=== PATIENT | male | born 1985 | race Caucasian/White ===

== ENCOUNTER 2020-06-28 14:29 | Outpatient (REF) | payer BC, SELFPAY | END 2020-06-28 14:30 | disposition home or self-care (01) | LOC: HO.LAB 14:29 | PROVIDERS: Visit Provider Hospitalist | DX: Z20.822 Contact with and (suspected) exposure to COVID-19 (principal) | CPT/HCPCS: 36415; U0003 ==

== ENCOUNTER 2024-03-08 15:47 | Outpatient (AMB) | payer BC, SELFPAY ==
[2024-03-08 15:52] VITALS: BP 138/86; PULSE 108; O2SAT 98; BMI 22.9
--- NOTE | 2024-03-08 15:52 | A.OFFPC_ITS ---
Vital Signs 03/08/24 15:52 Height 5 ft 8 in Weight 150 lb 6 oz BMI 22.9 BP 138/86 Blood Pressure Location Lt brachial Position Sitting Pulse 108 H Pulse Source Pulse Oximeter Pulse Oximetry (%) 98 Oxygen Delivery Method Room Air Intake Visit Reasons: NPV needs PE for insurance Allergies No Known Allergies Allergy (Verified 03/08/24 16:01) Medication List - Last Reconciled 03/08/24 by Rosa Golden MD No Known Home Meds Tobacco use date assessed: 03/08/24 Dental Screening Dental Screen Date: 03/08/24 Did you have a dental visit in the last 12 months?: No Did you have a dental problem in the last 6 months where you did not have access to dental care?: No Was dental information given to patient?: Patient has dentist HPI HPI Comments History of Present Illness Details 38 year old male with no significant pas t medical history presenting to [facility] and for physical exam No concerns today. Says [facility]. Due for labs ROS CONSTITUTIONAL: Denies weight loss, fever and chills. HEENT: Denies changes in vision and hearing. RESPIRATORY: Denies SOB and cough. CV: Denies palpitations and CP GI: Denies abdominal pain, nausea, vomiting and diarrhea. : Denies dysuria and urinary frequency. MSK: Denies new myalgia and joint pain. SKIN: Denies rash and pruritus. NEUROLOGICAL: Denies headache PSYCHIATRIC: Denies recent changes in mood. PHYSICAL EXAM: GENERAL: Alert and oriented x 3. NAD EYES: EOMI. Anicteric. HENT: Moist mucous membranes. No scleral icterus. No cervical lymphadenopathy. LUNGS: Clear to auscultation bilaterally. CARDIOVASCULAR: Regular rate and rhythm. No murmur. No JVD. ABDOMEN: Soft, non-tender +bs EXTREMITIES: No edema. Non-tender. SKIN: No rashes or lesions. Warm. NEUROLOGIC: No focal neurological deficits. CN II-XII grossly intact PSYCHIATRIC: Cooperative. Appropriate mood and affect [facility] Surgical History (Updated 03/08/24 @ 16:04 by Faina Zamorano CMA) History of appendectomy Family History (Updated 03/08/24 @ 16:05 by Faina Zamorano CMA) Father Substance abuse Social History (Updated 03/08/24 @ 16:10 by Faina Zamorano CMA) Household Members: None Housing: Apartment Alcohol intake: current Alcohol intake frequency: 3 or more drinks per day Alcohol type: beer and hard liquor Patient Tobacco Use Status: Current everyday Tobacco user Cigarettes Per Day: 10 e-Cigarette/Vaping Use: Never Used service: No Current occupational status: employed ([employer]) Current occupation: [employer] Cognitive needs: No Hearing needs: No Vision needs: No Questionnaire PHQ-9 Over the last 2 weeks, how often have you been bothered by any of the following problems? 1. Little interest or pleasure in doing things: not at all 2. Feeling down, depressed, or hopeless: not at all 3. Trouble falling or staying asleep, or sleeping too much: nearly every day 4. Feeling tired or having little energy: more than half the days 5. Poor appetite or overeating: not at all 6. Feeling bad about yourself - or that you are a failure or have let yourself or your family down: not at all 7. Trouble concentrating on things, such as reading the newspaper or watching television: not at all 8. Moving or speaking so slowly that other people could have noticed. Or the opposite - being so fidgety or restless that you have been moving around a lot more than usual: not at all 9. Thoughts that you would be better off or of hurting yourself in some way: not at all Total score: 5 Depression Screening Interpretation: Positive Depression Screening Follow-up: Declines treatment Depression Screening Done: Yes 64980 - PHQ-9 Billing: Yes Source: Developed by Drs. Mehdi Fernández, Heather Joel, Sixto Bourgeois and colleagues, with an educational michel from [email or web address]. Thrive Questionnaire Date Thrive assessed: 03/08/24 I am a: Patient What is your living situation today?: I have a steady place to live Within the past 12 months, did the food you bought not last and you didn't have the money to get more?: Never true Within the past 12 months, did you worry whether your food would run out before you got money to buy more?: Never true Do you have trouble paying for medicines?: No Do you have trouble getting transportation to medical appointments?: No Do you have trouble paying your heating and electricity bill?: No Do you have trouble taking care of your child, family member or friend?: No Do you have trouble with day-to-day activities such as bathing, preparing meals, shopping, managing finances, etc.?: No Are you currently unemployed and looking for a job?: No Are you interested in more education?: No Please select the resources that you would like help with: None Currently or been in a relationship where the following occur: No concerns reported THRIVE Score: 0 AUDIT C Alcohol Use Questionnaire (AUDIT-C) 1. How often do you have a drink containing alcohol?: 4 or more times a week 2. How many drinks containing alcohol do you have on a typical day when you are drinking?: 3 or 4 3. How often do you have six or more drinks on one occasion?: Daily or almost daily Total Score: 9 FRANDY-7 AMB Questionnaire FRANDY-7 Date FRANDY - 7 assessed: 03/08/24 Feeling nervous, anxious, or on edge: 0 = Not at all Not being able to stop or control worryin = Not at all Worrying too much about different things: 1 = Several days Trouble relaxin = Not at all Being so restless that it is hard to sit still: 1 = Several days Becoming easily annoyed or irritable: 0 = Not at all Feeling afraid as if something awful might happen: 0 = Not at all Total FRANDY-7 score (0-4 normal; 5-9 mild; 10-14 moderate; 15-21 severe): 2 Source: Developed by Drs. Mehdi Fernández, Heather Joel, Sixto Bourgeois and colleagues, with an educational michel from [email or web address]. FRANDY-7 Assessment Billing FRANDY-7 Assessment Tool: FRANDY-7 Assessment 88139 Physical exam (Primary Care) Vital Signs: Last Vital Signs Pulse 108 H 03/08/24 15:52 BP 138/86 03/08/24 15:52 Pulse Ox 98 03/08/24 15:52 Oxygen Delivery Method Room Air 03/08/24 15:52 BMI result Body Mass Index 22.9 Tobacco/Smoking Status: Tobacco use Status Tobacco use date assessed 03/08/24 03/08/24 16:06 Patient Tobacco Use Status Current everyday Tobacco 03/08/24 16:10 e-Cigarette/Vaping Use Never Used 03/08/24 16:10 PHQ-9: PHQ-9 Score PHQ-9: Total score 5 03/21/24 13:55 Depression Screening Interpretation: Positive Depression Screening Follow-up: Declines treatment Thrive Assessment: Date of Thrive Assessment Date Thrive assessed 03/08/24 03/08/24 16:06 Currently or been in a relationship where the following occur: No concerns reported Coding Level of Care Code Est Pt Prev Care 40-64y(26881) Diagnoses Physical exam Z00.00 Additional Codes FRANDY-7 Assessment Billing - FRANDY-7 Assessment Tool: FRANDY-7 Assessment [id number] ([id number])
== END 2024-03-08 16:19 | disposition home or self-care (01) ==
PROVIDERS: Visit Provider Internal Medicine
DX: Z00.00 Encounter for general adult medical examination without abnormal findings (principal)

== ENCOUNTER → 2024-03-08 15:47 | Outpatient (BNVA) | payer OTHER, SELFPAY | PROVIDERS: Visit Provider Internal Medicine | DX: Z00.00 Encounter for general adult medical examination without abnormal findings (principal) | CPT/HCPCS: 96127 ==

== ENCOUNTER 2024-03-26 15:13 | Outpatient (REF) | payer BC, SELFPAY ==
[2024-03-26 17:23] LABS: MANUAL DIFF FLAG NO
[2024-03-26 17:30] LABS: Basophils Absolute Auto 0.1 X10*3/uL (0.0-0.2); Basophils Percent Auto 0.6 % (0-2); Eosinophils Absolute Auto 0.1 X10*3/uL (0.0-0.4); Eosinophils Percent Auto 0.7 % (0-4); Hemoglobin 14.8 g/dl (14.0-18.0); Imm Gran Abs Auto 0.03 X10*3/uL (0.00-0.03); Imm Gran Pct Auto 0.3 % (0.0-0.4); Lymphocytes Absolute Auto 1.4 X10*3/uL (1.2-4.9); Lymphocytes Percent Auto 14.3 % (20-40); Mean Corpuscular HGB Conc 33.6 g/dl (31.0-36.0); Mean Corpuscular Hemoglobin 32.4 pg (27.0-33.0); Mean Corpuscular Volume 96.3 fL (80.0-98.0); Mean Platelet Volume 10.1 fL (9.4-12.4); Monocytes Absolute Auto 0.8 X10*3/uL (0.1-1.2); Monocytes Percent Auto 8.6 % (2-11); Neutrophils Absolute Auto 7.1 x10*3/uL (2.0-8.3); Neutrophils Percent Auto 75.5 % (45-73); Platelet Count 208 X10*3/uL (160-400); Red Blood Count 4.57 X10*6/uL (4.60-5.80); Red Cell Distribution Width 12.7 % (11.0-16.0); White Blood Count 9.4 X10*3/uL (4.8-10.8)
[2024-03-26 17:42] LABS: Estimated Average Glucose 94 mg/dL; Hemoglobin A1C 113.4407 umol/L; Hemoglobin A1c % 4.9 % (<6.0); Total Hemoglobin (HGBA1C) 3742.5149 umol/L
[2024-03-26 17:43] LABS: Alanine Aminotransferase 31 U/L (0-40); Albumin Level 4.5 g/dL (3.5-5.0); Alkaline Phosphatase 62 U/L (39-117); Anion Gap 15 (12-20); Aspartate Amino Transferase 31 U/L (5-37); Bilirubin Total 0.8 mg/dL (0.0-1.0); Blood Urea Nitrogen 11 mg/dL (9-16); Calcium 9.6 mg/dL (8.4-10.2); Carbon Dioxide 29 mmol/L (22-29); Chloride 101 mmol/L (96-108); Cholesterol 278 mg/dL (<200); Estimated Glomerular Filt Rate > 60; Glucose Random 99 mg/dL (60-115); HDL Cholesterol > 180 mg/dL (>40); LDL Cholesterol Calculated 81 mg/dL (<100); Potassium 4.2 mmol/L (3.3-5.1); Sodium 141 mmol/L (135-145); Total Protein 7.3 g/dL (6.5-8.0); Triglycerides 87 mg/dL (<150)
== END 2024-03-26 15:14 | disposition home or self-care (01) ==
LOC: HO.WFDLDS 15:13
PROVIDERS: Visit Provider Internal Medicine
DX: Z13.0 Encounter for screening for diseases of the blood and blood-forming organs and certain disorders involving the immune mechanism (principal); Z13.228 Encounter for screening for other metabolic disorders; Z13.220 Encounter for screening for lipoid disorders; Z13.1 Encounter for screening for diabetes mellitus
CPT/HCPCS: 36415; 80053; 80061; 83036; 85025

== ENCOUNTER 2024-04-05 14:46 | Outpatient (AMB) | payer BC, SELFPAY ==
--- NOTE | 2024-04-05 14:56 | A.OFFPC_ITS ---
Vital Signs 04/05/24 14:58 04/05/24 15:12 Height 5 ft 8 in Weight 155 lb BMI 23.6 BP 142/100 H 138/86 Blood Pressure Location Lt brachial Lt brachial Position Sitting Sitting Pulse 119 H 114 H Pulse Source Pulse Oximeter Pulse Oximeter Temp 98.8 F Pulse Oximetry (%) 99 Oxygen Delivery Method Room Air Intake Visit Reasons: Dizzy since fall 2 months ago Intake Note: Dizziness, not sleeping during the night since a fall two months ago. 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 Lost consciousness. Seen in [facility]. Got 15 stitches. Still having dizziness, excessive fatigue. No concerns today. Says [facility]. Due for labs ROS see HPI PHYSICAL EXAM: GENERAL: Alert and oriented x 3. NAD EYES: EOMI. Anicteric. HENT: Moist mucous membranes. No scleral icterus. No cervical lymphadenopathy. LUNGS: Clear to auscultation bilaterally. CARDIOVASCULAR: Regular rate and rhythm. No murmur. No JVD. ABDOMEN: Soft, non-tender +bs EXTREMITIES: No edema. Non-tender. SKIN: No rashes or lesions. Warm. NEUROLOGIC: No focal neurological deficits. CN II-XII grossly intact PSYCHIATRIC: Cooperative. Appropriate mood and affect [facility] Surgical History (Updated 03/08/24 @ 16:04 by Faina Zamorano CMA) History of appendectomy Family History (Updated 03/08/24 @ 16:05 by Faina Zamorano CMA) Father Substance abuse Social History (Updated 03/08/24 @ 16:10 by Faina Zamorano CMA) Household Members: None Housing: Apartment Alcohol intake: current Alcohol intake frequency: 3 or more drinks per day Alcohol type: beer and hard liquor Patient Tobacco Use Status: Current everyday Tobacco user Cigarettes Per Day: 10 e-Cigarette/Vaping Use: Never Used service: No Current occupational status: employed ([employer]) Current occupation: [employer] Cognitive needs: No Hearing needs: No Vision needs: No Questionnaire Thrive Questionnaire Date Thrive assessed: 03/08/24 I am a: Patient What is your living situation today?: I have a steady place to live Within the past 12 months, did the food you bought not last and you didn't have the money to get more?: Never true Within the past 12 months, did you worry whether your food would run out before you got money to buy more?: Never true Do you have trouble paying for medicines?: No Do you have trouble getting transportation to medical appointments?: No Do you have trouble paying your heating and electricity bill?: No Do you have trouble taking care of your child, family member or friend?: No Do you have trouble with day-to-day activities such as bathing, preparing meals, shopping, managing finances, etc.?: No Are you currently unemployed and looking for a job?: No Are you interested in more education?: No Please select the resources that you would like help with: None Currently or been in a relationship where the following occur: No concerns reported THRIVE Score: 0 FRANDY-7 AMB Questionnaire FRANDY-7 Date FRANDY - 7 assessed: 03/08/24 Source: Developed by Drs. Mehdi Fernández, Heather Joel, Sixto Bourgeois and colleagues, with an educational michel from [employer]. Physical exam (Primary Care) Vital Signs: Last Vital Signs Temp 98.8 F 04/05/24 14:58 Pulse 114 H 04/05/24 15:12 BP 138/86 04/05/24 15:12 Pulse Ox 99 04/05/24 14:58 Oxygen Delivery Method Room Air 04/05/24 14:58 BMI result Body Mass Index 23.6 Tobacco/Smoking Status: Tobacco use Status Tobacco use date assessed 03/08/24 04/05/24 15:03 Patient Tobacco Use Status Current everyday Tobacco 04/05/24 15:03 e-Cigarette/Vaping Use Never Used 04/05/24 15:03 Thrive Assessment: Date of Thrive Assessment Date Thrive assessed 03/08/24 04/05/24 15:03 Currently or been in a relationship where the following occur: No concerns reported Coding Level of Care Code Est Pt Level 4 (81700) Diagnoses Traumatic injury of head, sequela S09.90XS Encounter type: sequela Other fatigue R53.83 Fatigue type: other Dizziness R42 Assessment & Plan Assessment & Plan (1) Head trauma: Code(s): S09.90XA - Unspecified injury of head, initial encounter Category: Medical Qualifiers: Encounter type: sequela Qualified Code(s): S09.90XS - Unspecified injury of head, sequela Plan: Symptoms concerning for subdural bleed versus ongoing post concussive symptoms. CT ordered. Improve sleeping pattern-trazodone sent (2) Fatigue: Code(s): R53.83 - Other fatigue Category: Medical Qualifiers: Fatigue type: other Qualified Code(s): R53.83 - Other fatigue Plan: see above (3) Dizziness: Code(s): R42 - Dizziness and giddiness Category: Medical Plan: see above Orders: Orders CT head/brain wo IV con 04/05/24 R42 - Dizziness and giddiness, R53.83 - Other fatigue, S09.90XA - Unspecified injury of head, initial encounter Medications: New trazodone 50 - 100 mg (1 - 2 x 50 mg) PO BEDTIME 180 tabs 0RF 90 days
[2024-04-05 14:58] VITALS: BP 142/100; PULSE 119; TEMP 37.1; O2SAT 99; BMI 23.6
[2024-04-05 15:12] VITALS: BP 138/86; PULSE 114
== END 2024-04-05 16:26 | disposition home or self-care (01) ==
LOC: HO.HMCFM 14:47
PROVIDERS: Visit Provider Internal Medicine
DX: S09.90XS Unspecified injury of head, sequela (principal); R53.83 Other fatigue; R42 Dizziness and giddiness

== ENCOUNTER → 2024-04-05 14:46 | Outpatient (BNVA) | payer OTHER, SELFPAY | PROVIDERS: Visit Provider Internal Medicine ==

== ENCOUNTER 2024-04-13 10:22 | Outpatient (AMB) | payer BC, SELFPAY ==
--- NOTE | 2024-04-13 10:41 | A.OFFPC_ITS ---
Vital Signs 04/13/24 10:56 Height 5 ft 8 in Weight 150 lb 2 oz BMI 22.8 BP 118/74 Blood Pressure Location Rt brachial Position Sitting Pulse 96 Pulse Source Pulse Oximeter Pulse Oximetry (%) 98 Oxygen Delivery Method Room Air Intake Visit Reasons: ERF Intake Note: Hospital follow up. Director Of Catering Required: No Allergies No Known Allergies Allergy (Verified 04/13/24 10:43) Tobacco use date assessed: 03/08/24 Dental Screening Dental Screen Date: 03/08/24 HPI HPI Comments History of Present Illness Details 38 year old male with a past medical his tory of etoh use, fall/concussion, abnormal brain CT presenting for ER follow up He recently presented to [facility] seeking treatment. He was sent to the ER due to excessive shakiness, tremulousness and worry about his recent fall and dizziness. He was evaluated at [facility] ED and repeat head CT was performed. This redemonstrated a 8mm thalamic hyperdensity and a non specific right cerebellar hyperdensity. Fell 2 months ago, tripped forward hitting right temporal area. Lost consciousness. Seen in [facility]. Got 15 stitches. Still having dizziness, excessive fatigue. He was discharged from the ER on naltrexone, b6, folic acid. continues trazodone. Has been having increased dizziness and vertigo No concerns today. Says [facility]. Due for labs ROS see HPI PHYSICAL EXAM: GENERAL: Alert and oriented x 3. NAD EYES: EOMI. Anicteric. HENT: Moist mucous membranes. No scleral icterus. No cervical lymphadenopathy. LUNGS: Clear to auscultation bilaterally. CARDIOVASCULAR: Regular rate and rhythm. No murmur. No JVD. ABDOMEN: Soft, non-tender +bs EXTREMITIES: No edema. Non-tender. SKIN: No rashes or lesions. Warm. NEUROLOGIC: No focal neurological deficits. CN II-XII grossly intact PSYCHIATRIC: Cooperative. Appropriate mood and affect [facility] Surgical History (Updated 03/08/24 @ 16:04 by Faina Zamorano CMA) History of appendectomy Family History (Updated 03/08/24 @ 16:05 by Faina Zamorano CMA) Father Substance abuse Social History (Updated 03/08/24 @ 16:10 by Faina Zamorano CMA) Household Members: None Housing: Apartment Alcohol intake: current Alcohol intake frequency: 3 or more drinks per day Alcohol type: beer and hard liquor Patient Tobacco Use Status: Current everyday Tobacco user Cigarettes Per Day: 10 e-Cigarette/Vaping Use: Currently Using service: No Current occupational status: employed ([employer]) Current occupation: [employer] Cognitive needs: No Hearing needs: No Vision needs: No Questionnaire Thrive Questionnaire Date Thrive assessed: 03/08/24 I am a: Patient What is your living situation today?: I have a steady place to live Within the past 12 months, did the food you bought not last and you didn't have the money to get more?: Never true Within the past 12 months, did you worry whether your food would run out before you got money to buy more?: Never true Do you have trouble paying for medicines?: No Do you have trouble getting transportation to medical appointments?: No Do you have trouble paying your heating and electricity bill?: No Do you have trouble taking care of your child, family member or friend?: No Do you have trouble with day-to-day activities such as bathing, preparing meals, shopping, managing finances, etc.?: No Are you currently unemployed and looking for a job?: No Are you interested in more education?: No Please select the resources that you would like help with: None Currently or been in a relationship where the following occur: No concerns reported THRIVE Score: 0 FRANDY-7 AMB Questionnaire FRANDY-7 Date FRANDY - 7 assessed: 03/08/24 Source: Developed by Drs. Mehdi Fernández, Heather Joel, Sixto Bourgeois and colleagues, with an educational michel from [employer]. Physical exam (Primary Care) Vital Signs: Last Vital Signs Pulse 96 04/13/24 10:56 BP 118/74 04/13/24 10:56 Pulse Ox 98 04/13/24 10:56 Oxygen Delivery Method Room Air 04/13/24 10:56 BMI result Body Mass Index 22.8 Tobacco/Smoking Status: Tobacco use Status Tobacco use date assessed 03/08/24 04/13/24 10:48 Patient Tobacco Use Status Current everyday Tobacco 04/13/24 10:48 e-Cigarette/Vaping Use Currently Using 04/13/24 11:08 Thrive Assessment: Date of Thrive Assessment Date Thrive assessed 03/08/24 04/13/24 10:48 Currently or been in a relationship where the following occur: No concerns reported Coding Level of Care Code Est Pt Level 4 (69346) Diagnoses Abnormal CT scan, head R93.0 Dizziness R42 Traumatic injury of head, sequela S09.90XS Encounter type: sequela Assessment & Plan Assessment & Plan (1) Abnormal CT scan, head: Code(s): R93.0 - Abnormal findings on diagnostic imaging of skull and head, not elsewhere classified Category: Medical Plan: MRI brain with and without ordered. FMLA will be completed. Continue naltrexone. Patient is 6 days sober (2) Dizziness: Code(s): R42 - Dizziness and giddiness Category: Medical Plan: Meclizine prn MRI brain pending (3) Head trauma: Code(s): S09.90XA - Unspecified injury of head, initial encounter Category: Medical Qualifiers: Encounter type: sequela Qualified Code(s): S09.90XS - Unspecified injury of head, sequela Plan: see above Orders: Orders MR head/brain wo/w con Today R42 - Dizziness and giddiness, R93.0 - Abnormal findings on diagnostic imaging of skull and head, not elsewhere classified, S09.90XS - Unspecified injury of head, sequela Medications: New meclizine 25 mg PO BID PRN 60 tabs 1RF motion sickness naltrexone 50 mg PO DAILY 90 tabs 0RF
[2024-04-13 10:56] VITALS: BP 118/74; PULSE 96; O2SAT 98; BMI 22.8
== END 2024-04-13 13:58 | disposition home or self-care (01) ==
LOC: HO.HMCFM 10:22
PROVIDERS: PCP Internal Medicine; Visit Provider Internal Medicine
DX: R93.0 Abnormal findings on diagnostic imaging of skull and head, not elsewhere classified (principal); R42 Dizziness and giddiness; S09.90XS Unspecified injury of head, sequela

== ENCOUNTER → 2024-04-13 10:22 | Outpatient (BNVA) | payer BC, SELFPAY | PROVIDERS: Visit Provider Internal Medicine ==